=== PATIENT | female | born 2000 | race Caucasian/White ===

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

== ENCOUNTER 2021-02-02 14:40 | Emergency (ER) | payer BC ==
[~2021-02-02] VITALS: Ht 162.6 cm; Wt 63.6 kg
[2021-02-02] MEDS ORDERED: ZOLOFT 25MG25 MG PO (15:53)
[2021-02-02] MEDS ORDERED: TAMIFLU 75MG75 MG PO (17:06)
[2021-02-02] MEDS ORDERED: ZOFRAN ODT4 MG PO (17:06)
[2021-02-02 18:00] VITALS: BP 116/74; PULSE 81; TEMP 98.4
== END 2021-02-02 18:00 | disposition home or self-care (01) ==
LOC: COL.ER 14:40
DX: J10.1 Influenza due to other identified influenza virus with other respiratory manifestations (principal); Z20.822 Contact with and (suspected) exposure to COVID-19